=== PATIENT | male | born 1950 | race Caucasian/White ===

== ENCOUNTER 2019-06-17 10:10 | Outpatient (CLI) | payer MEDICARE, OTHER, SELFPAY ==
--- NOTE | 2019-06-17 11:11 | ECG_ITS ---
Measurements Intervals [place] Rate: 68 P: 27 AK: 158 QRS: -15 QRSD: 94 T: 13 QT: 376 QTc: 400 Interpretive Statements SINUS RHYTHM INCOMPLETE RIGHT BUNDLE BRANCH BLOCK BORDERLINE T WAVE ABNORMALITY- INFERIOR LEADS BASELINE ARTIFACT- I, II, AVR, AVL, AVF BORDERLINE ECG Electronically Signed On 06-17-2019 11:29:56 CDT by Kit Drew D.O.
[2019-06-17 11:35] LABS: Basophils Percent Auto 0.5 % (0.2-1.2); Eosinophils Absolute Auto 0.2 K/mm3 (0-0.3); Eosinophils Percent Auto 4.2 % (0-4.4); Hematocrit 40.6 % (42.0-52.0); Hemoglobin 13.7 g/dL (14.0-18.0); Immature Granulocyte Absolute 0.03 K/mm3 (0.00-0.031); Immature Granulocyte Percent A 0.7 % (0-0.5); Lymphocytes Absolute Auto 0.61 K/mm3 (0.9-3.2); Lymphocytes Percent Auto 14.4 % (18.3-44.2); Mean Corpuscular HGB Conc 33.7 g/dl (32-36); Mean Corpuscular Hemoglobin 31.4 pg (26-34); Mean Corpuscular Volume 92.9 fl (80-100); Mean Platelet Volume 8.4 fl (7.4-10.4); Monocytes Absolute Auto 0.4 K/mm3 (0.1-0.6); Monocytes Percent Auto 8.7 % (2.6-8.5); Neutrophils Percent Auto 71.5 % (45.5-73.1); Platelet Count Result 248 k/mm3 (150-375); Red Blood Count 4.37 M/mm3 (4.6-6.20); Red Cell Distribution Width 13.4 % (11.5-14.5); White Blood Count 4.2 K/mm3 (4.5-10.0)
[2019-06-17 11:41] LABS: Hemoglobin A1C 5.1 % (<5.7)
[2019-06-17 11:44] LABS: Urine Cotinine NEGATIVE
[2019-06-17 11:47] LABS: Albumin Level 4.5 g/dL (3.5-5.1); Estimated Glomerular Filt Rate > 60; Glucose 110 mg/dL (75-110)
== END 2019-06-17 10:11 | disposition home or self-care (01) ==
PROVIDERS: PCP Internal Medicine; Visit Provider Orthopaedic Surgery
DX: M16.11 Unilateral primary osteoarthritis, right hip (principal); I45.10 Unspecified right bundle-branch block
CPT/HCPCS: 36415; 80307; 82040; 82565; 82947; 83036; 85025; 87081; 93005

== ENCOUNTER 2019-08-21 12:01 | Outpatient (CLI) | payer MEDICARE, OTHER, SELFPAY ==
[2019-08-21 12:58] LABS: Basophils Percent Auto 0.4 % (0.2-1.2); Eosinophils Absolute Auto 0.1 K/mm3 (0-0.3); Eosinophils Percent Auto 2.2 % (0-4.4); Hematocrit 40.8 % (42.0-52.0); Hemoglobin 13.6 g/dL (14.0-18.0); Immature Granulocyte Absolute 0.02 K/mm3 (0.00-0.031); Immature Granulocyte Percent A 0.4 % (0-0.5); Lymphocytes Absolute Auto 0.67 K/mm3 (0.9-3.2); Lymphocytes Percent Auto 12.3 % (18.3-44.2); Mean Corpuscular HGB Conc 33.3 g/dl (32-36); Mean Corpuscular Hemoglobin 31.7 pg (26-34); Mean Corpuscular Volume 95.1 fl (80-100); Mean Platelet Volume 8.7 fl (7.4-10.4); Monocytes Absolute Auto 0.6 K/mm3 (0.1-0.6); Neutrophils Percent Auto 73.7 % (45.5-73.1); Platelet Count Result 249 k/mm3 (150-375); Red Blood Count 4.29 M/mm3 (4.6-6.20); Red Cell Distribution Width 13.3 % (11.5-14.5); White Blood Count 5.5 K/mm3 (4.5-10.0)
[2019-08-21 13:07] LABS: Hemoglobin A1C 5.2 % (<5.7); Urine Cotinine NEGATIVE
[2019-08-21 13:10] LABS: Albumin Level 4.4 g/dL (3.5-5.1); Estimated Glomerular Filt Rate > 60; Glucose 104 mg/dL (75-110)
== END 2019-08-21 12:02 | disposition home or self-care (01) ==
LOC: ANHSURGERY 12:04
PROVIDERS: PCP Internal Medicine; Visit Provider Orthopaedic Surgery
DX: Z01.818 Encounter for other preprocedural examination (principal); M16.11 Unilateral primary osteoarthritis, right hip
CPT/HCPCS: 36415; 80307; 82040; 82565; 82947; 83036; 85025; 87081

== ENCOUNTER 2019-09-07 00:40 | Outpatient (CLI) | payer MEDICARE, OTHER, SELFPAY ==
[2019-09-07 16:39] LABS: SARS-CoV-2 RNA PCR Negative
== END 2019-09-07 00:41 | disposition home or self-care (01) ==
LOC: ANHCOVIDDT 00:40
PROVIDERS: PCP Internal Medicine; Visit Provider Orthopaedic Surgery
DX: Z01.818 Encounter for other preprocedural examination (principal); Z11.59 Encounter for screening for other viral diseases
CPT/HCPCS: 87635; C9803; U0003

== ENCOUNTER 2019-09-10 00:49 | Day surgery (SDC) | payer MEDICARE, OTHER, SELFPAY ==
[2019-06-17 10:24] VITALS: BMI 29.7
[2019-06-17 11:08] VITALS: BP 133/87; PULSE 81; RESP 18; TEMP 36.8; O2SAT 98
[2019-08-21 12:39] VITALS: BMI 30.4
--- NOTE | 2019-08-21 12:47 | PC.NURSE ---
STATES NO CHANGE IN HEALTH HX SINCE LAST INTERVIEW ON 06/17/19
[2019-09-10] VITALS (12 sets, daily range): BP systolic 104–126; BP diastolic 62–91; PULSE 67–107; RESP 10–21; TEMP 36–36.7; O2SAT 90–100
--- NOTE | ~2019-09-10 | XR_ITS ---
EXAMINATION: XR hip RT min 2V DATE: 09/10/2019 10:07 INDICATION: Right hip arthroplasty. Postop. TECHNIQUE: 2 views of right hip were obtained. COMPARISON: Right hip radiographs 11/08/2017 FINDINGS: There is a total right hip arthroplasty in near-anatomic alignment. No fracture. There is s evere lumbar spondylosis. There is gas in the soft tissues, consistent with recent surgery. IMPRESSION: 1. Total right hip arthroplasty in near-anatomic alignment. Reviewed, dictated and finalized at location E.
[2019-09-10] MEDS: TRANEXAMIC ACID 1,000MG/ISO100 1,000 MG/100 ML BAG 200 MG IVPB (06:30)
[2019-09-10] MEDS: LACTATED RINGERS 1,000 ML 30 ML IV CONT ×2 (06:45→09:53)
--- NOTE | 2019-09-10 06:47 | WPDANESEPPF ---
Anes - Initial Pre Proc Eval Procedure: Operation Date: 09/10/19 07:30 Proposed Procedures p Right Total Hip Arthroplasty - Derick Dudley MD Date/Time: 09/10/19 06:47 Surgeon: Derick Dudley MD Pre Op Diagnosis: OA Right Hip Patient Data Age: 69 Gender: M Height: 5 ft 6 in Weight: 85.6 kg Last Vital Signs Temp 36.8 C 06/17/19 11:08 Pulse 81 06/17/19 11:08 Resp 18 06/17/19 11:08 BP 133/87 06/17/19 11:08 Pulse Ox 98 06/17/19 11:08 Allergies Allergy/AdvReac Type Severity Reaction Status Date / Time Penicillins Allergy Unknown Unknown Verified 08/21/19 12:11 Home Medications Medication Instructions Recorded Confirmed Type tamsulosin 0.4 mg capsule 0.8 mg PO DAILY #180 cap 03/04/19 08/27/19 Rx calcium carbonate-vitamin D3 2 tablet PO DAILY 06/17/19 08/27/19 History [Calcium 600 with Vitamin D3] cholecalciferol (vitamin D3) 2,000 unit PO DAILY 06/17/19 08/27/19 History magnesium oxide 400 mg PO DAILY 06/17/19 08/27/19 History omega 7-tkh-hqr-fish oil [Fish Oil] 1 cap PO DAILY 06/17/19 08/27/19 History acetaminophen [Tylenol Arthritis 650 mg PO Q12H PRN 08/21/19 08/27/19 History Pain] naproxen sodium [Aleve] 660 mg PO BID PRN 08/21/19 08/27/19 History turmeric 1 mg PO DAILY 08/21/19 08/27/19 History celecoxib 200 mg capsule 200 mg PO DAILY #90 cap 08/28/19 Rx Patient hx anesthesia problems: none Family hx anesthesia problems: none PMFSH Past Medical History Medical History (Updated 09/10/19 @ 06:49 by Ventura Peck MD) Osteoarthritis of right knee Prostate cancer Surgical History Surgical History (Updated 09/10/19 @ 06:50 by Ventura Peck MD) History of appendectomy Hx of tonsillectomy Family History Family History Mother Family history of glaucoma Hypertension Father Patient's father is , Onset Age: 66 Social History Social History Smoking status: Never smoker Alcohol intake: current Anes - Eval Final PreProcedure Day of Procedure 09/10/19 06:47 Patient weight: obese Heart: regular rate and rhythm Lungs: clear to auscultation Airway: Mallampati scale class II Neurological: alert and oriented Last oral intake: >/= 8 hours ASA classification: II Emergent: no Anesthetic plan: proceed Anesthesia type and monitoring: general ETT and standard monitoring Informed Consent: The patient's anesthetic plan and its attendant risks and benefits were discussed with the patient/family/POA. Questions were solicited and answers provided to the satisfaction of the patient/family/POA.
--- NOTE | 2019-09-10 07:24 | WPDHPUPDATE1 ---
History and Physical Update Update Date/Time: 09/10/19 07:24 History and Physical has been reviewed, including an updated exam of the patient. There are NO changes in the patient's condition. Risks, benefits, and alternatives have been discussed and questions answered. Patient agrees to proceed with procedure.
[2019-09-10] MEDS: CLINDAMYCIN 900 MG/NS 50 ML 900 MG/50 ML PIGGYBACK 50 MG IVPB (07:27)
[2019-09-10] MEDS: KETOROLAC 30 MG/ML VIAL (*BKC) IV PUSH (09:36)
[2019-09-10] MEDS: ceFAZolin SODIUM 1 GM VIAL 2 GM IV PUSH (09:50)
--- NOTE | 2019-09-10 09:52 | P.OP_ITS ---
Procedure Note - Detailed Date of procedure: 09/10/19 Pre-op diagnosis: OA Right Hip Post-op diagnosis: same Procedure performed: Total hip arthroplasty. Implants: The Accolade II hip stem, 127 degree size 4 , was utilized with excellent press-fit. The 50 mm ADM acetabular component was impacted with excellent press-fit stability. The +4 , 28 mm Biolox ceramic femoral head was utilized. Anesthesia: GLMA Surgeon: Derick Dudley MD Estimated blood loss (mL): 300 Drains: No Complications: None Condition: stable Findings: OPERATIVE DETAILS: The patient was given preoperative antibiotics. A general anesthetic was administered. The patient was carefully placed in the lateral decubitus position on the PEG board. The shoulders and hips were carefully positioned for component and leg length positioning reference. The hip was prepped and draped in the usual sterile fashion. A longitudinal incision was created over the posterior aspect of the greater trochanter. Careful dissection was brought down through the deep fascia with electrocautery. A minimally invasive optimized posterior approach to the hip was performed. The short external rotators and capsule were taken down in an L-shaped capsulotomy. The tissue was tagged for later repair using number 2 high strength suture. The femoral neck was measured and taken in situ. The femoral head was removed. The acetabulum was carefully exposed. The inferior capsule was released. The labrum was resected. The acetabulum was sequentially reamed to one over the intended cup size. The cup was impacted into position with excellent press-fit. Typical anatomic landmarks, including the bony contact points as well as the inferior transverse acetabular ligament were used to confirm cup positioning with preoperative templating. Attention was turned to the femur, which was carefully exposed. The hip was reamed and then broached sequentially. Excellent press-fit was obtained with the broach. The hip was trialed. Measurements were utilized, including the lesser trochanter as well as the center of the femoral head and the tip of the trochanter, and excellent assessment of the offset and leg lengths were confirmed. The real component was impacted into position. Trialing confirmed appropriate leg length and offset with soft tissue balancing as well apparent feel of the leg, both at the knee and the heel. Soft tissues were assessed using the the iliotibial band. Reduction of the posterior capsule and external rotators were also used as a secondary assessment. The hip was copiously irrigated with pulsatile lavage antibiotic solution periodically throughout the procedure. The real components were then assembled and reduced. The hip was stable throughout typical maneuvers, including extension, external rotation to 70 degrees, the position of sleep as well as flexion to 90 degrees with internal rotation past 45 degrees. The shake test confirmed stability without impingement. Osteophytes were removed as necessary. The short external rotators and capsule were repaired back to the posterior trochanter through drill holes. The deep fascia was repaired with running number 2 Quill suture, followed by 0 Stratafix suture and 2-0 Stratafix suture in the dermis. Steri- Strips were placed on the skin, followed by a sterile silver occlusive dressing. There were no complications. Meticulous hemostasis was maintained with the Aqua Mantys device. The patient was brought to the recovery room in stable condition. There were no complications.
--- NOTE | 2019-09-10 11:40 | ADMGEN ---
This patient, Aiden Alvarez, was admitted to Medical Room 247-. Patient/family oriented to hospital policies and general routines including ID bracelet, bed and alarms, visiting hours, pain management, procedures, bathroom and other care routines, personal items, smoking policy, room service/diet, and visiting hours. Valuables list has been completed. Information on how to activate the Rapid Response Team has been discussed. Patient/Family are encouraged to report perceived risks to care and to ask questions if they do not understand what they are told or what they should do.
[2019-09-10] MEDS: SODIUM CHLORIDE 0.9% IV 1,000 ML 125 ML IV CONT (12:27)
[2019-09-10] MEDS: DOCUSATE SODIUM 100 MG CAPSULE PO (17:02)
[2019-09-10] MEDS: FAMOTIDINE 20 MG TABLET PO (20:38)
[2019-09-10] MEDS: SENNOSIDES 8.6 MG TABLET 17.2 MG PO (20:38)
[2019-09-11 02:00] VITALS: BP 121/68; PULSE 94; RESP 20; TEMP 37; O2SAT 99
[2019-09-11 06:00] VITALS: BP 106/66; PULSE 91; RESP 18; TEMP 37.1; O2SAT 97
[2019-09-11 06:02] LABS: Basophils Percent Auto 0.1 % (0.2-1.2); Eosinophils Percent Auto 0.3 % (0-4.4); Hematocrit 33.9 % (42.0-52.0); Hemoglobin 11.2 g/dL (14.0-18.0); Immature Granulocyte Absolute 0.02 K/mm3 (0.00-0.031); Immature Granulocyte Percent A 0.3 % (0-0.5); Mean Corpuscular Hemoglobin 31.6 pg (26-34); Mean Corpuscular Volume 95.8 fl (80-100); Mean Platelet Volume 9.1 fl (7.4-10.4); Monocytes Absolute Auto 0.8 K/mm3 (0.1-0.6); Neutrophils Absolute Auto 6.1 K/mm3 (1.3-6.7); Neutrophils Percent Auto 81.3 % (45.5-73.1); Platelet Count Result 215 k/mm3 (150-375); Red Blood Count 3.54 M/mm3 (4.6-6.20); Red Cell Distribution Width 13.2 % (11.5-14.5); White Blood Count 7.5 K/mm3 (4.5-10.0)
[2019-09-11 06:04] LABS: Blood Urea Nitrogen 15 mg/dL (9-20); Calcium 8.7 mg/dL (8.4-10.2); Carbon Dioxide 26 mmol/L (22-30); Chloride 101 mmol/L (98-107); Estimated CRCL calculation 78 ml/min; Estimated Glomerular Filt Rate > 60; Glucose 124 mg/dL (75-110); Potassium 4.2 mmol/L (3.4-5.0); Sodium 133 mmol/L (137-145)
[2019-09-11] MEDS: CHOLECALCIFEROL 1,000 UNIT TABLET 2000 UNITS PO (08:16)
[2019-09-11] MEDS: FAMOTIDINE 20 MG TABLET PO (08:17)
[2019-09-11] MEDS: TAMSULOSIN HCL 0.4 MG CAPSULE 0.8 MG PO (08:17)
[2019-09-11] MEDS: MAGNESIUM OXIDE 400 MG TABLET PO (08:17)
[2019-09-11] MEDS: CELECOXIB 200 MG CAPSULE PO (08:18)
[2019-09-11] MEDS: polyethylene glycoL 3350 17 GM POWD.PACK PO (08:18)
[2019-09-11] MEDS: DOCUSATE SODIUM 100 MG CAPSULE PO (08:18)
--- NOTE | 2019-09-11 09:25 | WPDANESPN ---
Anes - Prog Note Post-Op Date/Time: 09/11/19 09:25 Cardiovascular status: normal Respiratory status: normal Airway patency: baseline Mental status: baseline Post-Op hydration status: normal Vital Signs: Last Vital Signs Temp 37.1 C 09/11/19 06:00 Pulse 91 09/11/19 06:00 Resp 18 09/11/19 06:00 BP 106/66 09/11/19 06:00 Pulse Ox 97 09/11/19 06:00 I/O: Intake & Output 09/10/19 09/11/19 09/11/19 23:59 07:59 15:59 Intake Total 1480 350 240 Output Total 900 Balance 1480 -550 240 Laboratory Tests 09/11/19 05:22 09/11/19 05:22 09/10/19 09/11/19 09/11/19 06:26 05:22 05:22 WBC 7.5 RBC 3.54 L Hgb 11.2 L Hct 33.9 L MCV 95.8 MCH 31.6 MCHC 33.0 RDW 13.2 Plt Count 215 MPV 9.1 Immature Gran % (Auto) 0.3 Neut % (Auto) 81.3 H Lymph % (Auto) 8.0 L [place] % (Auto) 10.0 H Eos % (Auto) 0.3 Baso % (Auto) 0.1 L Lymph # (Auto) 0.60 L [place] # (Auto) 0.8 H Eos # (Auto) 0.0 Baso # (Auto) 0.0 Abs Immat Gran (auto) 0.02 Absolute Neuts (auto) 6.1 Absolute Nucleated RBC 0.0 Nucleated RBC % 0.0 Sodium 133 L Potassium 4.2 Chloride 101 Carbon Dioxide 26 BUN 15 Creatinine 0.80 Estim Creat Clear Calc 78 Estimated GFR > 60 Glucose 124 H Calcium 8.7 Blood Type B Positive Antibody Screen Negative Post-procedural complaints: none Patient Feedback: Patient satisfied with anesthetic care.
[2019-09-11 10:00] VITALS: BP 106/71; PULSE 82; RESP 16; TEMP 36.8; O2SAT 96
== END 2019-09-11 11:00 | disposition home or self-care (01) ==
LOC: ANHSURGERY 06:05 → ANH2MED 11:23
PROVIDERS: PCP Internal Medicine; Visit Provider Orthopaedic Surgery
PROC: (CPT 27130; principal; 2019-09-10 07:30)
DX: M16.11 Unilateral primary osteoarthritis, right hip (principal); G47.33 Obstructive sleep apnea (adult) (pediatric); E66.9 Obesity, unspecified; Z68.30 Body mass index [BMI] 30.0-30.9, adult; Z85.46 Personal history of malignant neoplasm of prostate
CPT/HCPCS: 27130; 36415; 73502; 80048; 85025; 86850; 86900; 86901; 97110; 97116; 97161; 97165; A9270; C1713; C1776; J0131; J0171; J0330; J0690; J1100; J1170; J1885; J2270; J2370; J2405; J2704; J2710; J2795; J3010; J7030; J7120

== ENCOUNTER 2020-02-18 11:56 | Outpatient (NON) | payer MEDICARE, OTHER, SELFPAY ==
[2020-02-19 18:24] LABS: SARS-CoV-2 RNA PCR Negative
== END 2020-02-18 11:57 ==
LOC: ANHCOVIDDT 11:59
PROVIDERS: Visit Provider Internal Medicine
DX: R68.89 Other general symptoms and signs (principal); Z20.828 Contact with and (suspected) exposure to other viral communicable diseases
CPT/HCPCS: 87635; C9803; U0003

== ENCOUNTER 2020-06-08 17:37 | Outpatient (CLI) | payer MEDICARE, OTHER, SELFPAY | END 2020-06-08 17:38 | disposition home or self-care (01) | LOC: ANHCOVIDVC 17:38 | PROVIDERS: PCP Internal Medicine | DX: Z23 Encounter for immunization (principal) | CPT/HCPCS: 0001A; 91300 ==

== ENCOUNTER 2020-06-29 17:43 | Outpatient (CLI) | payer MEDICARE, OTHER, SELFPAY | END 2020-06-29 17:44 | disposition home or self-care (01) | LOC: ANHCOVIDVC 17:43 | PROVIDERS: PCP Internal Medicine | DX: Z23 Encounter for immunization (principal) | CPT/HCPCS: 0002A; 91300 ==

== ENCOUNTER 2021-01-27 09:43 | Outpatient (CLI) | payer MEDICARE, OTHER, SELFPAY ==
--- NOTE | ~2021-01-27 | NM_ITS ---
EXAMINATION: NM ish stress w perfusion DATE: 01/27/2021 12:10 INDICATION: Chest pain on exertion. TECHNIQUE: Rest images were obtained following intravenous administration of 8.8 mCi Tc99m tetrofosmi n (Myoview). The patient was infused intravenously with Lexiscan (regadenoson). Then, 25.7 mCi Tc99m tetrofosmin (Myoview) was administered intravenously, and stress images were obtained. Data was recon structed into short axis and horizontal and vertical long axis SPECT images. Gated SPECT images were also obtained. COMPARISON: None. FINDINGS: There is no definite reversible or fixed perfusion abnormality to suggest ischemia or infar ction. There is no segmental wall motion abnormality. Left ventricular ejection fraction measures 6 8%. IMPRESSION: 1. No definite ischemia or infarct. 2. Normal left ventricular ejection fraction measuring 68%. Reviewed, dictated and finalized at location A.
--- NOTE | 2021-01-27 10:44 | EST_ITS ---
Patient Info Name: Aiden Alvarez Age: 70 years : 1950 Gender: Male Ht: 66 in Wt: 185 lbs BSA: 2.00 m2 HR: 71 bpm BP: 141 / 93 mmHg Heart Rhythm: Sinus Rhythm Exam Date: 01/27/2021 10:54 AM Exam Location: [facility] Stress Patient Status: Outpatient Admit Date: 01/27/2021 Staff Ordering Physician: Glenn Cordova MD Attending Provider: Glenn Cordova MD Exercise Technologist: Karen Real CT Exercise Physician: Kit Drew DO Exam Type: CA stress ish w NM Study Info Indications R07.9 - Chest pain, unspecified A regadenoson stress test was performed. Summary 1. 1. Negative lexiscan stress test for ischemic ST changes by ECG criteria. 2. 2. Baseline hypertension. 3. 3. Nuclear scan to follow and will be reported separately. Please correlate with it. 4. 4. Patient informed of the above results. Protocol: Lexiscan Stress ECG Details Stage: REST Duration (min): 1 min : 50 sec HR (bpm): 74 SBP (mmHg): 141 DBP (mmHg): 93 Stage: REST Duration (min): 6 min : 8 sec HR (bpm): 81 SBP (mmHg): 141 DBP (mmHg): 93 Stage: STAGE 1 Duration (min): 0 min : 59 sec HR (bpm): 102 SBP (mmHg): 143 DBP (mmHg): 100 Stage: RECOVERY Duration (min): 1 min : 0 sec HR (bpm): 87 SBP (mmHg): 143 DBP (mmHg): 100 Stage: RECOVERY Duration (min): 2 min : 0 sec HR (bpm): 89 SBP (mmHg): 144 DBP (mmHg): 99 Stage: RECOVERY Duration (min): 2 min : 6 sec HR (bpm): 88 SBP (mmHg): 144 DBP (mmHg): 99 Rest HR: 81 bpm Peak HR: 104 bpm Rest Sys BP: 141 mmHg Peak Sys BP: 144 mmHg Max Pred HR: 150 bpm % Max Pred HR: 69 % Target HR: 128 bpm Max RPP: 14,976 bpm*mmHg Termination Reason: Completed protocol Cardiac Symptoms: Baseline chest pressure Total Time: 1 min : 0 sec Rest Brock BP: 93 mmHg Peak Brock BP: 99 mmHg Total Dose: 0.4 mg Resting ECG Sinus rhythm, IRBBB. Stress ECG No ST changes. Arrhythmias None. Report Signatures
== END 2021-01-27 09:44 | disposition home or self-care (01) ==
LOC: ANHCARD 09:47
PROVIDERS: PCP Internal Medicine; Visit Provider Internal Medicine
DX: R07.9 Chest pain, unspecified (principal)
CPT/HCPCS: 78452; 93017; A9502; J2785

== ENCOUNTER 2021-03-15 00:20 | Day surgery (SDC) | payer MEDICARE, OTHER, SELFPAY ==
[2021-03-05 13:13] VITALS: BMI 30.8
[2021-03-15 09:16] VITALS: BP 115/80; PULSE 80; RESP 18; TEMP 37; O2SAT 97
[2021-03-15] MEDS: LACTATED RINGERS 1,000 ML 150 ML IV CONT (09:26)
--- NOTE | 2021-03-15 09:42 | P.PNAN_ITS ---
Anes - Initial Pre Proc Eval Procedure: Operation Date: 03/15/21 10:00 Proposed Procedures p Colonoscopy - Mervin Rodriguez MD Date/Time: 03/15/21 09:42 Surgeon: Mervin Rodriguez MD Pre Op Diagnosis: family hx colon ca, change in bowel habits Patient Data Age: 70 Gender: M Height: 1.65 m Weight: 82.2 kg Last Vital Signs Temp 37.0 C 03/15/21 09:16 Pulse 80 03/15/21 09:16 Resp 18 03/15/21 09:16 BP 115/80 03/15/21 09:16 Pulse Ox 97 03/15/21 09:16 Allergies Allergy/AdvReac Type Severity Reaction Status Date / Time Penicillins Allergy Unknown Unknown Verified 03/15/21 09:15 Home Medications Medication Instructions Recorded Confirmed Type Calcium 600 with Vitamin D3 2 tablet PO DAILY 06/17/19 03/05/21 History cholecalciferol (vitamin D3) 2,000 unit PO DAILY 06/17/19 03/05/21 History magnesium oxide 400 mg PO DAILY 06/17/19 03/05/21 History omega 0-ykl-pde-fish oil [Fish Oil] 1 cap PO DAILY 06/17/19 03/05/21 History lisinopril 20 mg tablet 20 mg PO DAILY #90 tablet 02/08/21 03/05/21 Rx tamsulosin [Flomax] 0.4 mg PO BID 03/05/21 03/05/21 History Patient hx anesthesia problems: none Family hx anesthesia problems: none Results Review: All pre-operative results and documents have been reviewed as part of the pre-operative evaluation. [facility] Past Medical History Medical History Osteoarthritis of right knee Prostate cancer Surgical History Surgical History History of appendectomy Hx of tonsillectomy Status post total hip replacement, right Family History Family History Mother Family history of glaucoma Hypertension Father Patient's father is , Onset Age: 66 Social History Social History Smoking status: Never smoker Alcohol intake: current Drinks per week: 20 Alcohol use details: [place] and wine; multiple drinks daily Substance use: never Living arrangements: with family Gender identity (if verbalized by the patient): Male Spiritual care concerns: No Anes - Eval Final PreProcedure Day of Procedure 03/15/21 09:42 Patient weight: obese Heart: regular rate and rhythm Lungs: clear to auscultation Airway: Mallampati scale class II Neurological: alert and oriented Last oral intake: >/= 8 hours ASA classification: III Emergent: no Anesthetic plan: proceed Anesthesia type and monitoring: general GIVS and standard monitoring Results Review: All pre-operative results and documents have been reviewed as part of the pre-operative evaluation. Informed Consent: The patient's anesthetic plan and its attendant risks and benefits were discussed with the patient/family/POA. Questions were solicited and answers provided to the satisfaction of the patient/family/POA.
--- NOTE | 2021-03-15 09:50 | PM.HPGS ---
History of Present Illness History of Present Illness Consent: Risks, benefits, and alternatives have been discussed and questions answered. Patient agrees to proceed with procedure. Chief complaint: family hx colon ca, change in bowel habits Narrative: Aiden Alvarez is a 70 year old male with prostate cancer s/p XRT, recent PET scan showed abnormal thickening in rectum, he never had a colonoscopy, his mother had colon cancer. Review of Systems Constitutional: Constitutional: Denies headache(s) and Denies weakness Eyes: Eyes: Denies blurry vision ENT: Reports Normal hearing present, Denies headache(s) and Denies neck pain Cardiovascular: Cardiovascular: Denies chest pain and Denies dyspnea Respiratory: Respiratory: Denies dyspnea Gastrointestinal: Gastrointestinal: Reports no additional gastrointestinal complaints Genitourinary: Genitourinary: Denies dysuria Musculoskeletal: Musculoskeletal: Denies neck pain Integumentary/Breasts: Skin/Breast: Denies dry skin Neurologic: Reports Normal hearing present, Denies headache(s) and Denies weakness Psychiatric: Psychiatric: Denies anxiety Endocrine: Endocrine: Denies change in body appearance Hematologic/Lymphatic: Hematologic/Lymphatic: Denies easy bleeding Allergic/Immunologic: Allergic/Immunologic: Denies urticaria [facility] Past Medical History Medical History (Updated 03/15/21 @ 09:51 by Mervin Rodriguez MD) Abnormal PET scan of colon Osteoarthritis of right knee Prostate cancer Surgical History Surgical History History of appendectomy Hx of tonsillectomy Status post total hip replacement, right Family History Family History Mother Family history of glaucoma Hypertension Father Patient's father is , Onset Age: 66 Social History Social History Smoking status: Never smoker Alcohol intake: current Drinks per week: 20 Alcohol use details: [place] and wine; multiple drinks daily Substance use: never Living arrangements: with family Gender identity (if verbalized by the patient): Male Spiritual care concerns: No Meds Home Medications and Allergies Home Medications Medication Instructions Recorded Confirmed Type Calcium 600 with Vitamin D3 2 tablet PO DAILY 06/17/19 03/05/21 History cholecalciferol (vitamin D3) 2,000 unit PO DAILY 06/17/19 03/05/21 History magnesium oxide 400 mg PO DAILY 06/17/19 03/05/21 History omega 3-auu-mjf-fish oil [Fish Oil] 1 cap PO DAILY 06/17/19 03/05/21 History lisinopril 20 mg tablet 20 mg PO DAILY #90 tablet 02/08/21 03/05/21 Rx tamsulosin [Flomax] 0.4 mg PO BID 03/05/21 03/05/21 History Allergies Allergy/AdvReac Type Severity Reaction Status Date / Time Penicillins Allergy Unknown Unknown Verified 03/15/21 09:15 Vital Signs Vital Signs - 24 hr 03/15/21 09:16 Temperature 98.6 F Pulse Rate 80 Respiratory Rate 18 Blood Pressure 115/80 Pulse Oximetry 97 Exam Const: General: comfortable and no acute distress HENMT: General nose exam: Normal nares present Eyes: General: appearance normal, both eyes and all related structures Neck: Neck: no JVD Resp: Auscultation: clear to auscultation bilaterally Cardio: Rate: regular rate Rhythm: regular rhythm GI: Inspection: non-distended GI Palp: Yes Soft to palpation Skin: General skin exam: normal color Neuro: General: gait normal Speech: normal speech Extrem: General: normal to inspection Psych: Mental Status: mental status grossly normal Assessment and Plan Assessment and plan (1) Abnormal PET scan of colon: Code(s): R94.8 - Abnormal results of function studies of other organs and systems Status: Acute Assessment and Plan: will assess with colonoscopy (2) Prostate cancer: Code(s): C61 - [place]
[2021-03-15 10:14] VITALS: BP 93/72; PULSE 77; RESP 16; O2SAT 95
[2021-03-15 10:24] VITALS: BP 102/70; PULSE 73; RESP 16; O2SAT 97
[2021-03-15 10:34] VITALS: BP 121/82; PULSE 80; RESP 19; O2SAT 99
== END 2021-03-15 10:41 | disposition home or self-care (01) ==
PROVIDERS: PCP Internal Medicine; Visit Provider Internal Medicine Gastroenterology
PROC: 0DJD8ZZ Inspection of Lower Intestinal Tract, Via Natural or Artificial Opening Endoscopic (ICD-10-PCS; CPT 45378; principal; 2021-03-15 10:00)
DX: R94.8 Abnormal results of function studies of other organs and systems (principal); R19.4 Change in bowel habit; D12.3 Benign neoplasm of transverse colon; K63.5 Polyp of colon; K52.9 Noninfective gastroenteritis and colitis, unspecified; K57.30 Diverticulosis of large intestine without perforation or abscess without bleeding; C61 Malignant neoplasm of prostate; M17.11 Unilateral primary osteoarthritis, right knee; Z80.0 Family history of malignant neoplasm of digestive organs; Z96.641 Presence of right artificial hip joint
CPT/HCPCS: 45385; 45380; 88305; J2704; J7120

== ENCOUNTER 2022-03-08 22:47 | Emergency (ER) | payer MEDICARE, OTHER, SELFPAY ==
--- NOTE | ~2022-03-08 | XR_ITS ---
EXAMINATION: XR foot LT min 3V DATE: 03/09/2022 01:06 INDICATION: Left foot pain and bruising TECHNIQUE: Dorsoplantar, lateral, and 2 oblique views of the left foot were obtained. COMPARISON: None. FINDINGS: The bones are osteopenic which limits the sensitivity for fracture however none is seen. Th ere is moderate osteoarthritis at the first metatarsophalangeal joint and in multiple interphalangeal joints. Calcified atherosclerosis is noted. There is a plantar calcaneal enthesophyte. Mild dorsal s oft tissue swelling is noted over the metatarsals. IMPRESSION: 1. No acute osseous abnormality. Reviewed, dictated and finalized at location A. [employer]
[2022-03-08 23:02] VITALS: BP 108/68; PULSE 109; RESP 16; TEMP 36.7; O2SAT 99
[2022-03-09 01:05] LABS: Hematocrit 26.9 % (42.0-52.0); Hemoglobin 8.9 g/dL (14.0-18.0); Mean Corpuscular HGB Conc 33.1 g/dl (32-36); Mean Corpuscular Hemoglobin 34.2 pg (26-34); Mean Corpuscular Volume 103.5 fl (80-100); Mean Platelet Volume 10.5 fl (7.4-10.4); Platelet Count Result 106 k/mm3 (150-375); Red Cell Distribution Width 16.3 % (11.5-14.5); White Blood Count 13.3 K/mm3 (4.5-10.0)
[2022-03-09 01:13] LABS: INR 1.3; Prothrombin Time 15.7 Seconds (11.1-14.7)
[2022-03-09 01:14] LABS: Partial Thromboplastin Time 47.5 SECONDS (22.3-36.8)
[2022-03-09 01:17] LABS: Band Neutrophils Percent 11 % (0-6); Lymphocytes Absolute Manual 1.46 K/mm3 (1.1-4.5); Monocytes Absolute Manual 1.19 K/mm3 (0.1-0.90); Monocytes Percent Manual 9 % (3-9); Neutrophils Absolute Manual 10.64 K/mm3 (1.3-6.7); Neutrophils Percent Manual 69 % (46-73); Platelet Estimate Decreased (Adequate); Total Cells Counted 100
[2022-03-09 01:18] LABS: Anisocytosis 1+ (NORMAL); Hypochromasia 1+ (NORMAL); Ovalocytes 1+ (NORMAL); Schistocytes None Seen (NORMAL)
[2022-03-09 01:41] LABS: Alanine Aminotransferase 19 U/L (6-50); Albumin Level 3.1 g/dL (3.5-5.1); Alkaline Phosphatase 233 U/L (38-126); Anion Gap 4 mmol/L (8-16); Aspartate Amino Transferase 38 U/L (17-59); Blood Urea Nitrogen 14 mg/dL (9-20); Calcium 8.2 mg/dL (8.4-10.2); Carbon Dioxide 29 mmol/L (22-30); Chloride 102 mmol/L (98-107); Estimated Glomerular Filt Rate > 60; Glucose 114 mg/dL (65-110); Potassium 3.8 mmol/L (3.4-5.0); Sodium 135 mmol/L (137-145)
[2022-03-09 01:53] LABS: Bilirubin,Total 0.6 mg/dL (0.2-1.3)
--- NOTE | 2022-03-09 02:42 | ED.GENADULT ---
HPI - General Adult General Chief complaint: Extremity Problem,Nontraumatic Stated complaint: toes turned blue Time Seen by Provider: 03/09/22 00:26 History of Present Illness HPI narrative: Patient is a 71-year-old gentleman who presents emerged department with chief complaint of left foot bruising. Patient reports that he has been undergoing chemotherapy for prostate cancer and noticed that his foot today had some bruising present on the dorsum of the left foot. The patient reports no trauma but does report that he has history of peripheral neuropathy the patient reports no resting pain and reports that there is pain with palpation in the area of the bruising. Patient reports is not on blood thinners Related Data Home Medications Medication Instructions Recorded Confirmed calcium carbonate 600 mg-vitamin 2 tablet PO DAILY 06/17/19 11/02/21 D3 10 mcg (400 unit) chewable tablet (Calcium 600 with Vitamin D3) magnesium oxide 400 mg PO DAILY 06/17/19 11/02/21 Allergies Allergy/AdvReac Type Severity Reaction Status Date / Time No Known Allergies Allergy Unverified 11/02/21 09:39 Review of Systems Review of Systems: A 10 system review of systems was completed on the patient and is negative except for what is stated in the HPI. Nursing and ancillary documentation was reviewed. [facility] Past Medical History Medical History Abnormal PET scan of colon Osteoarthritis of right knee Prostate cancer Surgical History Surgical History History of appendectomy Hx of tonsillectomy Status post total hip replacement, right Family History Family History Mother Family history of glaucoma Hypertension Father Patient's father is , Onset Age: 66 Social History Social History Smoking status: Never smoker Alcohol intake: current Drinks per week: 20 Alcohol use details: [place] and wine; multiple drinks daily Substance use: never Gender identity (if verbalized by the patient): Male Spiritual care concerns: No Exam Narrative: GENERAL: Well-appearing, well-nourished, and in no acute distress. HEAD: Normocephalic, atraumatic. EYES: PERRLA and EOMI. ENT: Nares clear, no rhinorrhea or epistaxis. Mucous membranes moist. NECK: Supple. CHEST: Clear to auscultation. No respiratory distress. HEART: Regular rate and rhythm. No murmur heard. Normal peripheral pulses. ABDOMEN: Soft, nontender, nondistended, normal active bowel sounds. EXTREMITIES: Normal range of motion. No edema. Intact dorsalis pedis pulse in both left and right foot. There is bruising present on the dorsum of the phalanges of the left foot and digits 2 through 5 SKIN: Warm, dry, no rash. NEURO: No focal deficits. Alert and oriented x3. PSYCH: Normal mood and affect. Course Course Emergency Course: Patient has intact pulses present there is no signs of acute vascular compromise. X-ray showed no evidence of fracture platelet count was somewhat low at 106 Vital Signs Vital signs: Vital Signs Temperature 36.7 C 03/08/22 23:02 Pulse Rate 109 H 03/08/22 23:02 Respiratory Rate 16 03/08/22 23:02 Blood Pressure 108/68 03/08/22 23:02 Pulse Oximetry 99 03/08/22 23:02 Oxygen Delivery Room Air 03/08/22 23:02 Temperature 36.7 C 03/08/22 23:02 Pulse Rate 109 H 03/08/22 23:02 Respiratory Rate 16 03/08/22 23:02 Blood Pressure 108/68 03/08/22 23:02 Pulse Oximetry 99 03/08/22 23:02 Oxygen Delivery Room Air 03/08/22 23:02 Medical Decision Making Vital Signs Vital Signs: Vital Signs Temperature 36.7 C 03/08/22 23:02 Pulse Rate 109 H 03/08/22 23:02 Respiratory Rate 16 03/08/22 23:02 Blood Pressure 108/68 03/08/22 23:02 P
[2022-03-09 02:51] VITALS: BP 97/57; PULSE 95; RESP 20; O2SAT 94
== END 2022-03-09 02:52 | disposition home or self-care (01) ==
PROVIDERS: Emergency Provider Emergency Medicine; PCP Internal Medicine
DX: S90.32XA Contusion of left foot, initial encounter (principal); X58.XXXA Exposure to other specified factors, initial encounter
CPT/HCPCS: 36415; 73630; 80053; 85025; 85610; 85730; 99283